=== PATIENT | female | born 1945 | race Caucasian/White ===

== ENCOUNTER → 2024-06-25 | Outpatient (CLI) | payer MEDICARE, BC, SELFPAY ==
--- NOTE | 2024-06-25 | XR_ITS ---
Examination: Lumbar spine, 5 views Technique: Lumbar spine AP, lateral, coned lateral lower lumbar spine, bilateral obliques 5 views Exam date and time: June 25, 2024 1326 hours Comparison July 16, 2019 INDICATIONS: Chronic low back pain years, radiating down the left leg last 2 weeks. FINDINGS: Significant osteopenia Lumbar levoscoliosis 15 degrees Diffuse advanced facet arthropathy Diffuse lumbar discogenic, advanced L3-L4 No spondylolisthesis No lumbar fracture IMPRESSION: Diffuse lumbar degenerative disc disease, advanced L3-L4
== END | disposition home or self-care (01) ==
PROVIDERS: PCP Nurse Practitioner Family; Referring Provider Nurse Practitioner Family; Visit Provider Nurse Practitioner Family
DX: M51.369 Other intervertebral disc degeneration, lumbar region without mention of lumbar back pain or lower extremity pain (principal)
CPT/HCPCS: 72110

== ENCOUNTER → 2024-09-08 | Outpatient (CLI) | payer MEDICARE, BC, SELFPAY ==
[2024-09-08 16:05] LABS: Collection Type, Urine Clean Catch
[2024-09-08 16:55] LABS: Vitamin B12 413 pg/mL (211-911)
[2024-09-08 16:56] LABS: Cholesterol 148 mg/dL (132-200); HDL Cholesterol 75 mg/dL (40-60); LDL Cholesterol,Calculated 61 mg/dL (0-130); Thyroid Stimulating Hormone 1.45 uIU/mL (0.55-4.78); Triglycerides 61 mg/dL (30-150)
[2024-09-08 17:03] LABS: Bacteria,Urine Rare; Bilirubin,Urine Negative (Negative); Blood,Urine Trace (Negative); Color,Urine Lt-Yellow (Lt Yel-Yel); Glucose, Urine Negative (Negative); Ketones,Urine Negative (Negative); Leukocyte Esterase,Urine Positive (Negative); Nitrite,Urine Negative (Negative); PH,Urine 6.5 (5.0-7.0); Protein,Urine Trace (Neg - Trace); RBC,Urine 22 /hpf (0-3); Specific Gravity,Urine 1.023 (1.001-1.035); Squamous Epithelial Cell,Urine 4 /hpf (0-5); Urobilinogen,Urine Negative mg/dL (0.0-1.0); WBC,Urine 43 /hpf (0-5)
[2024-09-08 17:06] LABS: Clarity,Urine Hazy (Clear/Hazy); Culture Indicated,Urine Yes
[2024-09-08 17:18] LABS: Iron 58 mcg/dL (50-170)
== END | disposition home or self-care (01) ==
LOC: COPL 15:14
PROVIDERS: PCP Nurse Practitioner Family; Referring Provider Nurse Practitioner Family; Visit Provider Nurse Practitioner Family
DX: Z00.00 Encounter for general adult medical examination without abnormal findings (principal); Z98.84 Bariatric surgery status
CPT/HCPCS: 36415; 80053; 80061; 81001; 82306; 82607; 83540; 83735; 84443; 85025; 87086

== ENCOUNTER → 2024-09-22 | Outpatient (CLI) | payer MEDICARE, BC, SELFPAY ==
[2024-09-22 09:41] LABS: Collection Type, Urine Clean Catch
[2024-09-22 10:49] LABS: Bilirubin,Urine Negative (Negative); Blood,Urine Negative (Negative); Clarity,Urine Clear (Clear/Hazy); Color,Urine Yellow (Lt Yel-Yel); Glucose, Urine Negative (Negative); Ketones,Urine Negative (Negative); Leukocyte Esterase,Urine Positive (Negative); Nitrite,Urine Negative (Negative); PH,Urine 5.5 (5.0-7.0); Protein,Urine Trace (Neg - Trace); RBC,Urine 8 /hpf (0-3); Specific Gravity,Urine 1.028 (1.001-1.035); Squamous Epithelial Cell,Urine 1 /hpf (0-5); Urobilinogen,Urine Negative mg/dL (0.0-1.0); WBC,Urine 14 /hpf (0-5)
[2024-09-22 11:01] LABS: Culture Indicated,Urine Yes
== END | disposition home or self-care (01) ==
LOC: SLDO 09:31
PROVIDERS: PCP Nurse Practitioner Family; Referring Provider Nurse Practitioner Family; Visit Provider Nurse Practitioner Family
DX: N30.01 Acute cystitis with hematuria (principal)
CPT/HCPCS: 81001; 87086

== ENCOUNTER → 2025-02-18 | Outpatient (CLI) | payer MEDICARE, BC, SELFPAY ==
--- NOTE | 2025-02-18 12:48 | XR_ITS ---
Examination: Mandible series 5 views TECHNIQUE: Yessenia lateral, right and left sagittal oblique, Benedict mandible series 5 views Date and time: February 18, 2025 1330 hours INDICATIONS: Patient fell 6 days ago with injury to the mandible, amenable pain. FINDINGS: No acute mandible fracture noted Mandibular condyles appear intact IMPRESSION: No acute fracture depicted As clinically warranted, if pain persists, consider CT maxillofacial study follow-up
--- NOTE | 2025-02-18 12:48 | XR_ITS ---
Examination: Right knee 4 views TECHNIQUE: AP oblique lateral axial right knee 4 views Date and time: February 18, 2025 1337 hours INDICATIONS: Patient fell 6 days ago with injury to the knee, knee pain. FINDINGS: Acute fracture traversing the lower third of the patella No displacement No patellar dislocation IMPRESSION: Acute fracture traversing the inferior portion of the patella
== END | disposition home or self-care (01) ==
LOC: CDIM 12:37
PROVIDERS: PCP Family Medicine; Referring Provider Nurse Practitioner Family; Visit Provider Nurse Practitioner Family
DX: S00.83XA Contusion of other part of head, initial encounter (principal); S82.001A Unspecified fracture of right patella, initial encounter for closed fracture; W19.XXXA Unspecified fall, initial encounter
CPT/HCPCS: 70110; 73564